=== PATIENT | female | born 1985 | race American Indian/Alaskan Native ===

== ENCOUNTER 2016-05-26 10:21 | Outpatient (CLI) | payer MEDICAID ==
[2016-05-26 14:10] VITALS: BP 102/55
== END 2016-05-26 14:31 | disposition home or self-care (01) ==
LOC: TRG 10:21
PROVIDERS: ATTEND Obstetrics & Gynecology
DX: O77.9 Labor and delivery complicated by fetal stress, unspecified (principal); O47.1 False labor at or after 37 completed weeks of gestation; Z3A.39 39 weeks gestation of pregnancy

== ENCOUNTER 2017-02-11 17:41 | Emergency (ER) | payer MEDICAID ==
[2017-02-11] MEDS ORDERED: LIDOCAINE VISCOUS 2% PO ONE (21:45)
[2017-02-11] MEDS ORDERED: LIDOCAINE VISCOUS 2% ONE (21:50)
--- NOTE | 2017-02-11 21:53 | Emergency Department Report ---
ED ENT HPI - General Chief complaint: Sore Throat Stated complaint: SORE THROAT, LEFT ARM PAIN Time Seen by Provider: 02/11/17 20:47 Source: patient Mode of arrival: Ambulatory Limitations: No Limitations - History of Present Illness Initial comments: This is a 31-year-old female nontoxic, well nourished in appearance, no acute signs of distress presents to the ED complaining of sore throat with dry cough x1 week. Patient describes sore throat as swallowing razor blades. Patient denies any fever, chills, headache, stiff neck, n/v, abdominal pain, chest pain , shortness of breathe, abdominal pain, or rash. Patient also states has LUE pain when over extending which is subsided in the ED and stated she has been lifting a lot of things at home which she developed pain that night. Patient denies any trauma to the region. Patient stated symptoms of LUE is relieved now. Patient denies any allergies or PMH. Patient stated last menstrual cycle was 3 weeks ago and patient denies any chances of . MD complaint: sore throat, other (cough) -: Gradual, week(s) (1) Location: throat Severity: mild Severity scale (0 -10): 7 Quality: other (sensation of swallowing razor blades) Consistency: constant Improves with: none Worsens with: swallowing Associated Symptoms: cough, sore throat. denies: fever, gum swelling, toothache , pain with swallowing, tinnitus, hearing loss, discharge from ear, rhinorrhea - Related Data Previous Rx's Medication Instructions Recorded Last Taken Type Hyoscyamine Subl [Levsin Sl] 0.125 mg PO Q4-6H #10 tablet 01/26/13 Unknown Rx Ondansetron [Zofran] 8 mg PO Q4-6H PRN #15 tablet 01/26/13 Unknown Rx Ferrous Sulfate [Feosol 325 MG tab] 325 mg PO TID #90 tablet 05/27/16 Unknown Rx Ibuprofen [Motrin 800 MG tab] 800 mg PO Q8HR PRN #30 tablet 05/27/16 Unknown Rx Lidocain2.5%/Prilocai2.5% [Emla] 5 gm TP ONCE PRN #1 tube 05/27/16 Unknown Rx Docusate Sodium [Colace] 100 mg PO BID PRN #60 capsule 05/28/16 Unknown Rx Amoxicillin 500 mg PO BID #20 capsule 10/19/17 Unknown Rx Allergies Allergy/AdvReac Type Severity Reaction Status Date / Time No Known Allergies Allergy Verified 05/26/16 10:24 ED Dental HPI - General Chief complaint: Sore Throat Stated complaint: SORE THROAT, LEFT ARM PAIN Time Seen by Provider: 02/11/17 20:47 Source: patient Mode of arrival: Ambulatory Limitations: No Limitations - Related Data Previous Rx's Medication Instructions Recorded Last Taken Type Hyoscyamine Subl [Levsin Sl] 0.125 mg PO Q4-6H #10 tablet 01/26/13 Unknown Rx Ondansetron [Zofran] 8 mg PO Q4-6H PRN #15 tablet 01/26/13 Unknown Rx Ferrous Sulfate [Feosol 325 MG tab] 325 mg PO TID #90 tablet 05/27/16 Unknown Rx Ibuprofen [Motrin 800 MG tab] 800 mg PO Q8HR PRN #30 tablet 05/27/16 Unknown Rx Lidocain2.5%/Prilocai2.5% [Emla] 5 gm TP ONCE PRN #1 tube 05/27/16 Unknown Rx Docusate Sodium [Colace] 100 mg PO BID PRN #60 capsule 05/28/16 Unknown Rx Amoxicillin 500 mg PO BID #20 capsule 02/11/17 Unknown Rx Allergies Allergy/AdvReac Type Severity Reaction Status Date / Time No Known Allergies Allergy Verified 05/26/16 10:24 ED Review of Systems ROS: Stated complaint: SORE THROAT, LEFT ARM PAIN Other details as noted in HPI Constitutional: denies: chills, fever Eyes: denies: eye pain, eye discharge, vision change ENT: throat pain. denies: ear pain Respiratory: cough. denies: shortness of breath, wheezing Cardiovascular: denies: chest pain, palpitations Endocrine: no symptoms reported Gastrointestinal: denies: abdominal pain, nausea, diarrhea Genitourinary: denies: urgency, dysuria, discharge Musculoskeletal: denies: back pain, joint swelling, arthralgia Skin: denies: rash, lesions Neurological: denies: headache, weakness, paresthesias Psychiatric: denies: anxiety, depression Hematological/Lymphatic: denies: easy bleeding, easy bruising ED Past Medical Hx - Past Medical History Previous Medical History?: No Hx Hypertension: No Hx Congestive Heart Failure: No Hx Diabetes: No Hx Deep Vein Thrombosis: No Hx Renal Disease: No Hx Sickle Cell Disease: No Hx Seizures: No Hx Asthma: No Hx COPD: No - Surgical History Past Surgical History?: No - Social History Smoking Status: Never Smoker Substance Use Type: Alcohol - Medications Home Medications: Home Medications Medication Instructions Recorded Confirmed Last Taken Type Hyoscyamine Subl [Levsin Sl] 0.125 mg PO Q4-6H #10 tablet 01/26/13 Unknown Rx Ondansetron [Zofran] 8 mg PO Q4-6H PRN #15 tablet 01/26/13 Unknown Rx Ferrous Sulfate [Feosol 325 MG tab] 325 mg PO TID #90 tablet 05/27/16 Unknown Rx Ibuprofen [Motrin 800 MG tab] 800 mg PO Q8HR PRN #30 tablet 05/27/16 Unknown Rx Lidocain2.5%/Prilocai2.5% [Emla] 5 gm TP ONCE PRN #1 tube 05/27/16 Unknown Rx Docusate Sodium [Colace] 100 mg PO BID PRN #60 capsule 05/28/16 Unknown Rx Amoxicillin 500 mg PO BID #20 capsule 02/11/17 Unknown Rx ED Physical Exam - General Limitations: No Limitations General appearance: alert, in no apparent distress - Head Head exam: Present: atraumatic, normocephalic, normal inspection - Eye Eye exam: Present: normal appearance, PERRL, EOMI. Absent: scleral icterus, conjunctival injection, nystagmus, periorbital swelling, periorbital tenderness Pupils: Present: normal accommodation - ENT ENT exam: Present: mucous membranes moist, TM's normal bilaterally, normal external ear exam - Expanded ENT Exam Expanded Ear exam: Present: normal external inspection Mouth exam: Present: normal external inspection, tongue normal. Absent: drooling, trismus, muffled voice, tongue elevation, laceration Teeth exam: Present: normal inspection Throat exam: Positive: tonsillar erythema, tonsillomegaly (2+), tonsillar exudate, other (uvula midline. No abscesses or swelling noted.). Negative: R peritonsillar mass, L peritonsillar mass - Neck Neck exam: Present: normal inspection, full ROM. Absent: tenderness, meningismus, lymphadenopathy, thyromegaly - Respiratory Respiratory exam: Present: normal lung sounds bilaterally. Absent: respiratory distress, wheezes, rales, rhonchi, stridor, chest wall tenderness, accessory muscle use, decreased breath sounds, prolonged expiratory - Cardiovascular Cardiovascular Exam: Present: regular rate, normal rhythm, normal heart sounds. Absent: systolic murmur, diastolic murmur, rubs, gallop - GI/Abdominal GI/Abdominal exam: Present: soft, normal bowel sounds. Absent: distended, tenderness, guarding, rebound, rigid, diminished bowel sounds - Rectal Rectal exam: Present: deferred - Extremities Exam Extremities exam: Present: normal inspection, full ROM, normal capillary refill. Absent: tenderness, pedal edema, joint swelling, calf tenderness - Back Exam Back exam: Present: normal inspection, full ROM. Absent: tenderness, CVA tenderness (R), CVA tenderness (L), muscle spasm, paraspinal tenderness, vertebral tenderness, rash noted - Neurological Exam Neurological exam: Present: alert, oriented X3, CN II-XII intact, normal gait, reflexes normal - Psychiatric Psychiatric exam: Present: normal affect, normal mood - Skin Skin exam: Present: warm, dry, intact, normal color. Absent: rash ED Course Vital Signs 02/11/17 17:48 Temperature 98.7 F Pulse Rate 101 H Respiratory 16 Rate Blood Pressure 129/74 O2 Sat by Pulse 99 Oximetry - Reevaluation(s) Reevaluation #1: 02/11/17 21:56 Patient is speaking in full sentences with no signs of distress noted. ED Medical Decision Making - Medical Decision Making 31-year-old female presents with tonsillitis with exudate. Patient is stable and patient was examined by me. Patient received viscous lidocaine which patient stated symptoms have subsided or sore throat. Patient be treated with amoxicillin 10 days. Patient was instructed to follow-up with a primary care doctor in 3-5 days or if symptoms worsen and continue return to emergency room as soon as possible possible. Patient is hemodynamically stable with stable vital signs. Patient states he is feeling better. At time time of discharge, the patient does not seem toxic or ill in appearance. No acute signs of distress noted. Patient agrees to discharge treatment plan of care. No further questions noted by the patient. Critical care attestation.: If time is entered above; I have spent that time in minutes in the direct care of this critically ill patient, excluding procedure time. ED Disposition Clinical Impression: Tonsillitis with exudate Disposition: TO HOME OR SELFCARE Is pt being admited?: No Does the pt Need Aspirin: No Condition: Stable Instructions: Tonsillitis (ED), Amoxicillin (By mouth) Additional Instructions: Follow-up with a primary care doctor in 3-5 days or if symptoms worsen and continue return to emergency room as soon as possible possible. Prescriptions: Amoxicillin 500 mg PO BID #20 capsule Referrals: OMID RON MD [Primary Care Provider] - 3-5 Days KARRIE AWAD MD [Staff Physician] - 3-5 Days [facility] [Outside] - 3-5 Days [facility] [Outside] - 3-5 Days Forms: Work/School Release Form(ED)
[2017-02-11 22:09] VITALS: BP 127/78
== END 2017-02-11 22:10 | disposition home or self-care (01) ==
LOC: ED 17:41
DX: J03.90 Acute tonsillitis, unspecified (principal)
CPT/HCPCS: 99282